=== PATIENT | female | born 1940 | race Caucasian/White ===

== ENCOUNTER 2022-12-13 08:22 | Emergency (ER) | payer MEDICARE ==
[~2022-12-13] VITALS: Ht 152.4 cm; Wt 56.7 kg
[2022-12-13] MEDS ORDERED: CHILDREN'S ASPI81 M1 PO (08:36)
[2022-12-13] MEDS ORDERED: METFORMIN HCL500 M1 PO (08:36)
[2022-12-13] MEDS ORDERED: METOPIRONE250 MG (08:37)
[2022-12-13 08:49] VITALS: BP 189/59
== END 2022-12-13 08:58 | disposition home or self-care (01) ==
LOC: ED 08:22 → EDBD 08:23 → ED 08:58
DX: H11.32 Conjunctival hemorrhage, left eye (principal)
CPT/HCPCS: 99283